=== PATIENT | male | born 1955 | race Caucasian/White ===

== ENCOUNTER 2023-01-20 15:18 | Outpatient (REF) | payer OTHER, SELFPAY ==
[2023-01-20 21:37] LABS: Anion Gap 8.3 mmol/L (3-11); BUN 16 mg/dL (7-18); CO2 26.7 mmol/L (21.0-32.0); CREATININE 1.1 mg/dL (0.70-1.30); Calcium 8.6 mg/dL (8.5-10.1); Chloride 102 mmol/L (98-107); Glucose 121 mg/dL (74-106); Potassium 3.8 mmol/L (3.5-5.1); Sodium 137 mmol/L (136-145)
== END 2023-01-20 15:19 | disposition home or self-care (01) ==
LOC: NCHCN 15:18
PROVIDERS: PCP Family Medicine; Visit Provider Family Medicine
DX: I10 Essential (primary) hypertension (principal); U07.1 COVID-19
CPT/HCPCS: 80048

== ENCOUNTER 2024-08-16 03:38 | Outpatient (CLI) | payer MEDICARE, SELFPAY ==
--- NOTE | 2024-08-16 10:57 | W.NUTRFU ---
Date of service: 08/16/24 Time of Service: 09:00 Nutrition Note NOTE: Fausto referred to nutrition for weight mgt. Due to bad knees (R replaced and L knee bone on bone) he does not exercise. Reviewed diet habits - for breakfast may have something like a bagel with cheese and meat, lunch is wherever I what I can find to eat, and dinner gives example of last night which was pasta (says is a weaness of his) chicken and salad (which he has nightly). He does snack without planning for them and these are usually ultra-processed types of snacks low in fiber and high in refined starch and added sugar. he also identifies a soda habit. I asked him to aim for low-hanging fruit and work with getting liquid sugar out of his diet including juices. Also asked him to address snacking and limit to 2 PLANNED SNACKS per day with fiber and protein in them. Also suggested he work at increasing fiber and reducing added sugar in general and reviewed how to track added sugar and fiber. Gave him goal of <20g added sugar and at least 30g fiber per day. Will follow up with phone call x1 month to check in and see how he is doing with changes and offer follow up visit Time Spent in Nutritional Counseling and Treatment: 25 min
== END 2024-08-16 03:39 | disposition home or self-care (01) ==
LOC: DS 03:38
PROVIDERS: PCP Family Medicine; Visit Provider Dietitian, Registered
DX: Z68.43 Body mass index [BMI] 50.0-59.9, adult (principal); E66.9 Obesity, unspecified
CPT/HCPCS: 00123; 97802